=== PATIENT | male | born 1970 | race Caucasian/White ===

== ENCOUNTER 2024-06-24 19:37 | Emergency (ER) | payer SELFPAY ==
[~2024-06-24] VITALS: Ht 180.3 cm; Wt 81.6 kg
[2024-06-24 19:56] VITALS: TEMP 98.2
[2024-06-24 20:30] LABS: BASOPHILS # (AUTO) 0.2 (0.0-0.1); EOSINOPHILS # (AUTO) 0.1 (0.0-0.4); EOSINOPHILS % 0.8 % (0.0-6.0); HEMOGLOBIN 15.4 g/dL (14.0-18.0); LYMPHOCYTES # (AUTO) 2.4 (1.0-3.2); LYMPHOCYTES % 16.4 % (18.0-39.1); MEAN CORPUSCULAR HEMOGLOBIN 30.8 pg (28-32); MEAN CORPUSCULAR HGB CONC 33.5 g/dL (31-35); MONOCYTES # (AUTO) 1.3 (0.2-0.8); MONOCYTES % 8.6 % (4.4-11.3); NEUTROPHILS # (AUTO) 10.7 (2.1-6.9); NEUTROPHILS % 72.7 % (38.7-80.0); PLATELET COUNT 193 x10e3/uL (140-360); RED CELL DISTRIBUTION WIDTH 13.2 % (11.7-14.4); WHITE BLOOD COUNT 14.76 x10e3/uL (4.8-10.8)
[2024-06-24 20:43] LABS: ALBUMIN 3.9 g/dL (3.5-5.0); ANION GAP 17.9 mmol/L (8-16); BILIRUBIN,TOTAL 1.8 mg/dL (0.2-1.2); CALCIUM 8.9 mg/dL (8.4-10.2); CREATININE, SERUM 1.24 mg/dL (0.72-1.25); POTASSIUM 3.9 mmol/L (3.5-5.1); TOTAL PROTEIN 7.7 g/dL (6.5-8.1)
[2024-06-24] MEDS: SODIUM CHLORIDE 0.9% 1000ML 1,000 ML IV ONE (20:57)
[2024-06-24] MEDS: KETOROLAC TROMETHAMINE 30 MG/ML VIAL IV STA (20:59)
[2024-06-24 21:01] LABS: TROPONIN I 0.068 ng/mL (0-0.300)
[2024-06-24] MEDS: DICYCLOMINE HCL 20 MG/2 ML VIAL IM ONE (21:01)
[2024-06-24 22:30] VITALS: PULSE 94; RESP 16; O2SAT 96
[2024-06-24] MEDS ORDERED: ONDANSETRON ODT4 MG SL (22:50)
[2024-06-24] MEDS ORDERED: PANTOPRAZOLE SO40 MG PO (22:50)
[2024-06-24] MEDS ORDERED: DICYCLOMINE HCL20 MG PO (22:50)
== END 2024-06-24 23:10 | disposition home or self-care (01) ==
LOC: ER 19:42
DX: R10.11 Right upper quadrant pain (principal); I10 Essential (primary) hypertension; R94.31 Abnormal electrocardiogram [ECG] [EKG]; Z95.810 Presence of automatic (implantable) cardiac defibrillator; F17.210 Nicotine dependence, cigarettes, uncomplicated
CPT/HCPCS: 36415; 71045; 76705; 80053; 83690; 84484; 85025; 93005; 99284; J0500; J1885; J2470; J7030

== ENCOUNTER 2024-06-30 13:31 | Inpatient (IN) | payer SELFPAY ==
[~2024-06-30] VITALS: Ht 180.3 cm; Wt 81.6 kg
[~2024-06-30 13:31] MED LIST: DICYCLOMINE HCL20 MG PO; ONDANSETRON ODT4 MG SL; PANTOPRAZOLE SO40 MG PO
[2024-06-30 13:35] VITALS: TEMP 97.8
[2024-06-30] MEDS ORDERED: SODIUM CHLORIDE 0.9% 500ML 500 ML IV ONE (14:15)
[2024-06-30] MEDS ORDERED: IOPAMIDOL 370 MG/ML 100 ML INFUS..BTL INJ ONE (14:16)
[2024-06-30 14:17] LABS: BASOPHILS # (AUTO) 0.1 (0.0-0.1); BASOPHILS % 1.4 % (0.0-1.0); EOSINOPHILS # (AUTO) 0.3 (0.0-0.4); EOSINOPHILS % 3.3 % (0.0-6.0); HEMATOCRIT 42.6 % (38.2-49.6); HEMOGLOBIN 14.3 g/dL (14.0-18.0); LYMPHOCYTES # (AUTO) 2.8 (1.0-3.2); LYMPHOCYTES % 30.8 % (18.0-39.1); MEAN CORPUSCULAR HEMOGLOBIN 30.1 pg (28-32); MEAN CORPUSCULAR HGB CONC 33.6 g/dL (31-35); MEAN CORPUSCULAR VOLUME 89.7 fL (81-99); MONOCYTES # (AUTO) 0.9 (0.2-0.8); MONOCYTES % 10.2 % (4.4-11.3); NEUTROPHILS # (AUTO) 4.9 (2.1-6.9); NEUTROPHILS % 53.9 % (38.7-80.0); PLATELET COUNT 232 x10e3/uL (140-360); RED BLOOD COUNT 4.75 x10e6/uL (4.3-5.7); RED CELL DISTRIBUTION WIDTH 13.5 % (11.7-14.4); WHITE BLOOD COUNT 9.13 x10e3/uL (4.8-10.8)
[2024-06-30 14:31] LABS: INR 1.04; PROTHROMBIN TIME 14.2 seconds (11.9-14.5)
[2024-06-30 14:32] LABS: PARTIAL THROMBOPLASTIN TIME 40.1 seconds (23.8-35.5)
[2024-06-30 14:37] LABS: ALBUMIN 4.1 g/dL (3.5-5.0); ALBUMIN/GLOBULIN RATIO 1.1 (0.8-2.0); ANION GAP 16.4 mmol/L (8-16); BILIRUBIN,TOTAL 0.7 mg/dL (0.2-1.2); CREATININE, SERUM 1.25 mg/dL (0.72-1.25); MAGNESIUM 1.9 MG/DL (1.3-2.1); POTASSIUM 3.4 mmol/L (3.5-5.1)
[2024-06-30 14:54] LABS: TROPONIN I 0.05 ng/mL (0-0.300)
[2024-06-30] MEDS: NITROGLYCERIN 2% OINT 1 GM PKT TOP ONE (15:01)
[2024-06-30] MEDS: FUROSEMIDE INJ 10 MG/ML 4 ML VIAL IV ONE (15:02)
[2024-06-30] MEDS: ONDANSETRON HCL INJ 2MG/ML 2ML 2 MG/ML VIAL IV STA (15:02)
[2024-06-30 15:13] LABS: ACETAMINOPHEN < 3.0 ug/mL (10-30); SALICYLATE < 5.0 mg/dL (0-30)
[2024-06-30] MEDS ORDERED: ONDANSETRON HCL INJ 2MG/ML 2ML 2 MG/ML VIAL IV PRN (16:00)
[2024-06-30] MEDS ORDERED: HYDRALAZINE HCL 20 MG/ML VIAL IV PRN (16:00)
[2024-06-30] MEDS ORDERED: Morphine 2mg Syringe 2 MG/ML SYR IV PRN (16:00)
[2024-06-30] MEDS ORDERED: POTASSIUM CHLORIDE 20 MEQ TAB CR PO ONE (16:10)
[2024-06-30] MEDS: POTASSIUM CHLORIDE 20 MEQ TAB CR PO STA (16:11)
[2024-06-30 17:01] LABS: BILIRUBIN,URINE NEGATIVE (NEGATIVE); CLARITY,URINE CLEAR (CLEAR); COLOR,URINE STRAW (YELLOW); GLUCOSE, URINE NEGATIVE (NEGATIVE); KETONES,URINE NEGATIVE (NEGATIVE); LEUKOCYTE ESTERASE ,URINE NEGATIVE (NEGATIVE); NITRITE,URINE NEGATIVE (NEGATIVE); PH,URINE 7 (5 - 7); PROTEIN,URINE DIPSTICK NEGATIVE (NEGATIVE); URINE UROBILINOGEN 0.2 mg/dL (0.2 - 1)
[2024-06-30 17:06] LABS: AMPHETAMINES SCREEN,URINE NEGATIVE (NEGATIVE); BENZODIAZEPINES SCREEN,URINE NEGATIVE (NEGATIVE); CANNABINOIDS SCREEN,URINE NEGATIVE (NEGATIVE); COCAINE SCREEN,URINE NEGATIVE (NEGATIVE); METHADONE SCREEN, URINE NEGATIVE (NEGATIVE); OPIATES SCREEN,URINE NEGATIVE (NEGATIVE); PHENCYCLIDINE SCREEN,URINE NEGATIVE (NEGATIVE)
[2024-06-30 17:16] LABS: WBC,URINE (MAN) 0-5 /HPF (0-5)
[2024-06-30 18:17] VITALS: PULSE 86; RESP 15
[2024-06-30 20:00] VITALS: BP 106/96; PULSE 86; RESP 18; TEMP 97.9; O2SAT 96
[2024-06-30] MEDS: FUROSEMIDE INJ 10 MG/ML 2 ML VIAL IV SCH (22:09)
[2024-06-30] MEDS: NITROGLYCERIN 2% OINT 1 GM PKT TOP SCH (22:10)
[2024-07-01] VITALS: BP 111/90; PULSE 82; RESP 18; TEMP 97.6; O2SAT 98
[2024-07-01 00:30] VITALS: BP 111/90; PULSE 82; RESP 18; TEMP 97.6; O2SAT 98
[2024-07-01 04:00] VITALS: BP 139/102; PULSE 50; RESP 18; TEMP 97.7; O2SAT 100
[2024-07-01 08:00] VITALS: BP 139/90; PULSE 50; RESP 18; TEMP 97.7; O2SAT 100
[2024-07-01 08:28] LABS: BASOPHILS # (AUTO) 0.1 (0.0-0.1); BASOPHILS % 1.1 % (0.0-1.0); EOSINOPHILS # (AUTO) 0.5 (0.0-0.4); EOSINOPHILS % 4.1 % (0.0-6.0); HEMATOCRIT 44.9 % (38.2-49.6); HEMOGLOBIN 14.9 g/dL (14.0-18.0); LYMPHOCYTES % 27.2 % (18.0-39.1); MEAN CORPUSCULAR HEMOGLOBIN 30.7 pg (28-32); MEAN CORPUSCULAR HGB CONC 33.2 g/dL (31-35); MEAN CORPUSCULAR VOLUME 92.4 fL (81-99); MONOCYTES # (AUTO) 1.3 (0.2-0.8); MONOCYTES % 11.7 % (4.4-11.3); NEUTROPHILS # (AUTO) 6.1 (2.1-6.9); NEUTROPHILS % 55.4 % (38.7-80.0); PLATELET COUNT 234 x10e3/uL (140-360); RED BLOOD COUNT 4.86 x10e6/uL (4.3-5.7); RED CELL DISTRIBUTION WIDTH 13.4 % (11.7-14.4); WHITE BLOOD COUNT 10.96 x10e3/uL (4.8-10.8)
[2024-07-01 08:53] VITALS: BP 137/114; PULSE 61; RESP 18; TEMP 97.6; O2SAT 100
[2024-07-01 08:53] LABS: ANION GAP 16.8 mmol/L (8-16); BILIRUBIN,TOTAL 1.1 mg/dL (0.2-1.2); CALCIUM 9.3 mg/dL (8.4-10.2); CHOL/HDL RATIO 6.7 (3.9-4.7); CREATININE, SERUM 1.49 mg/dL (0.72-1.25); POTASSIUM 3.8 mmol/L (3.5-5.1); TOTAL PROTEIN 7.9 g/dL (6.5-8.1)
[2024-07-01 09:40] LABS: TROPONIN I 0.067 ng/mL (0-0.300)
[2024-07-01] MEDS: ASPIRIN 81 MG ENTERIC COATED PO SCH (09:53)
[2024-07-01 12:50] VITALS: BP 126/86; PULSE 91; RESP 18; TEMP 98.2; O2SAT 100
== END 2024-07-01 13:17 | disposition left against medical advice (07) | DRG 291 ==
LOC: ER 14:07 → ERHOLD 15:53 → MED/SURG2 18:24
PROVIDERS: ADMIT Internal Medicine; ATTEND Internal Medicine
DX: I11.0 Hypertensive heart disease with heart failure (principal); I50.21 Acute systolic (congestive) heart failure; I16.0 Hypertensive urgency; R10.9 Unspecified abdominal pain; Z91.148 Patient's other noncompliance with medication regimen for other reason; Z95.0 Presence of cardiac pacemaker; F17.200 Nicotine dependence, unspecified, uncomplicated
CPT/HCPCS: 36415; 71045; 74177; 80053; 80061; 80307; 80329; 81001; 82550; 83690; 83735; 83880; 84484; 85025; 85610; 85730; 93005; 93306; 99284; J0360; J1940; J2405; J2470; Q9967

== ENCOUNTER 2025-02-03 12:04 | Emergency (ER) | payer SELFPAY ==
[~2025-02-03] VITALS: Ht 180.3 cm; Wt 81.6 kg
[2025-02-03 12:10] VITALS: PULSE 88; RESP 16; TEMP 97.7
[2025-02-03 13:04] LABS: BASOPHILS % 0.9 % (0.0-1.0); EOSINOPHILS % 2.9 % (0.0-6.0); LYMPHOCYTES % 19.1 % (18.0-39.1); MONOCYTES % 9.4 % (4.4-11.3); NEUTROPHILS % 67.1 % (38.7-80.0); RED CELL DISTRIBUTION WIDTH 13.5 % (11.7-14.4)
[2025-02-03 13:16] LABS: EST GLOMERULAR FILTRATION RATE 49.0 ML/MIN (>=60)
[2025-02-03] MEDS: SODIUM CHLORIDE 0.9% 1000ML 1,000 ML IV STA (13:32)
[2025-02-03] MEDS: KETOROLAC TROMETHAMINE 30 MG/ML VIAL IV STA (13:33)
[2025-02-03] MEDS ORDERED: DOXYCYCLINE HY100 MG PO (16:38)
[2025-02-03] MEDS ORDERED: CEFDINIR300 MG PO (16:38)
[2025-02-03 17:07] VITALS: BP 149/95; PULSE 92; RESP 17; O2SAT 100
== END 2025-02-03 17:00 | disposition home or self-care (01) ==
LOC: ER 12:23
DX: N50.812 Left testicular pain (principal); I86.1 Scrotal varices; N43.3 Hydrocele, unspecified; N28.9 Disorder of kidney and ureter, unspecified; X58.XXXA Exposure to other specified factors, initial encounter; I10 Essential (primary) hypertension; Z95.810 Presence of automatic (implantable) cardiac defibrillator; F17.210 Nicotine dependence, cigarettes, uncomplicated
CPT/HCPCS: 36415; 76870; 80048; 85025; 93976; 99284; J1885; J7030